=== PATIENT | female | born 1950 | race Caucasian/White ===

== ENCOUNTER 2017-11-10 10:00 | Inpatient (IN) ==
[2017-11-10 11:56] LABS: Appearance,Urine CLEAR; Bacteria,Urine 0 /hpf (0); Bilirubin,Urine NEG (NEG); Color,Urine COLORLESS; Glucose,Urine (UA) NEGATIVE (NEG); Leukocyte Esterase,Urine NEG /uL (NEG); Mucus,Urine FEW /hpf (0); Protein,Urine NEG (NEG); Specific Gravity,Urine 1.003 (1.000-1.035); Urine Blood 0.03 mg/dL (<0.03); Urine RBC < 1 /hpf (0-1); Urine Squamous Epithelial Cell < 1 /hpf (0-4); Urine WBC 0 /hpf (0-4); Urobilinogen,Urine NEG (NEG)
[2017-11-10 12:18] LABS: Basophils # (Auto) 0.1 K/mcL (0.0-0.3); Basophils % (Auto) 0.5 % (0.0-2.0); Eosinophils # (Auto) 0.3 K/mcL (0.0-0.7); Eosinophils % (Auto) 2.7 % (0.0-7.0); Granulocytes % (Auto) 62.3 % (38.0-78.0); Lymphocytes # (Auto) 3.2 K/mcL (1.5-4.8); Lymphocytes % (Auto) 28.1 % (15.5-49.0); Mean Cell Volume 90.8 fL (80.0-100.0); Mean Corpuscular HGB Conc 33.6 g/dL (31.0-36.0); Mean Corpuscular Hemoglobin 30.5 pg (26.0-34.0); Monocytes # (Auto) 0.7 K/mcL (0.1-0.9); Monocytes % (Auto) 6.4 % (1.0-12.0); Platelet Count 364 K/mcL (140-440); RBC 4.92 M/mcL (4.00-5.20); Red Cell Distribution Width 13.4 % (11.5-14.5)
[2017-11-10 12:33] LABS: Blood Urea Nitrogen 13 mg/dl (8-23)
[2017-11-17] MEDS ORDERED: PREGABALIN 75 MG CAPSULE PO SCH (06:00)
[2017-11-17] MEDS ORDERED: ACETAMINOPHEN 500 MG TABLET PO SCH (06:00)
[2017-11-17] MEDS ORDERED: oxyCODONE 10 MG TAB.ER.12H PO SCH (06:00)
[2017-11-17] MEDS ORDERED: ceFAZolin 1 GM VIAL IV SCH (06:00)
[2017-11-17] MEDS ORDERED: SODIUM CHLORIDE IJ ONE (09:01)
[2017-11-17] MEDS ORDERED: ROPIVACAINE HCL IJ ONE (09:01)
[2017-11-17] MEDS ORDERED: EPINEPHRINE IJ ONE (09:01)
[2017-11-17] MEDS ORDERED: ROPIVACAINE HCL/PF 49.5 ML, EPINEPHrine 0.5 MG, 0.9 % SODIUM CHLORIDE 9 ML IJ ONE (09:15)
[2017-11-17] MEDS ORDERED: SCOPOLAMINE 1 PATCH PATCH TOPICAL ONE (11:36)
[2017-11-17] MEDS ORDERED: IPRATROPIUM/ALBUTEROL 3 ML AMPUL.NEB NEB ONE (11:38)
[2017-11-17] MEDS ORDERED: GENTAMICIN SULFATE 800 MG/20 ML VIAL IR ONE (11:42)
[2017-11-17] MEDS ORDERED: LIDOCAINE HCL/PF 100 MG/5 ML SYRINGE IV ONE (12:05)
[2017-11-17] MEDS ORDERED: TRANEXAMIC ACID 1,000 MG/10 ML VIAL IV ONE ×3 (12:05→15:21)
[2017-11-17] MEDS ORDERED: ONDANSETRON 4 MG/2 ML VIAL IV ONE (12:05)
[2017-11-17] MEDS ORDERED: BUPIVACAINE PF 0.5% 30 ML VIAL IJ ONE (12:05)
[2017-11-17] MEDS ORDERED: DEXAMETHASONE 10 MG/ML VIAL IV ONE (12:05)
[2017-11-17] MEDS ORDERED: MIDAZOLAM 5 MG/5 ML VIAL IV ONE (12:05)
[2017-11-17] MEDS ORDERED: PROPOFOL 200 MG/20 ML VIAL IV ONE (12:05)
[2017-11-17] MEDS ORDERED: METHOCARBAMOL 1,000 MG/10 ML VIAL IV PRN (12:47)
[2017-11-17] MEDS ORDERED: diphenhydrAMINE 50 MG/ML VIAL IV PRN (12:47)
[2017-11-17] MEDS ORDERED: ePHEDrine 50 MG/ML AMPUL IV PRN (12:47)
[2017-11-17] MEDS ORDERED: NALOXONE HCL 0.4 MG/ML VIAL IV PRN (12:47)
[2017-11-17] MEDS ORDERED: IPRATROPIUM/ALBUTEROL 3 ML AMPUL.NEB NEB PRN (12:47)
[2017-11-17] MEDS ORDERED: HYDROmorphone 2 MG/ML VIAL IV PRN (12:47)
[2017-11-17] MEDS ORDERED: FLUMAZENIL 0.1 MG/ML ML IV PRN (12:47)
[2017-11-17] MEDS ORDERED: ONDANSETRON 4 MG/2 ML VIAL IV PRN ×2 (12:47→15:21)
[2017-11-17] MEDS ORDERED: fentaNYL 100 MCG/2 ML VIAL IV PRN (12:47)
[2017-11-17] MEDS ORDERED: ATROPINE SULFATE 0.4 MG/ML VIAL IV PRN (12:47)
[2017-11-17] MEDS ORDERED: PROMETHAZINE 25 MG/ML VIAL IV PRN (12:47)
[2017-11-17] MEDS ORDERED: LACTATED RINGERS 1,000 ML IV SCH (13:00)
[2017-11-17] MEDS ORDERED: HYDROcodone/APAP 10/325MG TABLET PO PRN (13:28)
[2017-11-17] MEDS ORDERED: NAPROXEN (PP) 200MG TABLET (#24) PO PRN (13:28)
--- NOTE | 2017-11-17 13:28 | Brief Operative Note ---
Date of procedure: 11/17/17 Pre-op diagnosis: RIGHT KNEE DJD Post-op diagnosis: same Procedure: RIGHT KNEE TKA Grafts/Implants: Yes Anesthesia: GETA Findings: NONE Surgeon: Chalino Flores Qa Reviewer: Maurilio Angeles Estimated blood loss (cc): 20 Tourniquet Time (Minutes): 45 Specimens Removed/Pathology: none sent Condition: stable Disposition: PACU
[2017-11-17] MEDS: MEPERIDINE 25 MG/ML SYRINGE IV PRN ×2 (13:45→14:06)
[2017-11-17] MEDS ORDERED: TRANEXAMIC ACID 1,000 MG/10 ML VIAL IV SCH (14:06)
[2017-11-17] MEDS ORDERED: BENZOCAINE/MENTHOL 1 LOZENGE PO PRN (15:21)
[2017-11-17] MEDS ORDERED: BISACODYL 10 MG SUPP.RECT PR PRN (15:21)
[2017-11-17] MEDS ORDERED: FLEETS ADULT ENEMA PR PRN (15:21)
[2017-11-17] MEDS ORDERED: POLYETHYLENE GLYCOL 3350 17 GM PACKET PO PRN (15:21)
[2017-11-17] MEDS ORDERED: ACETAMINOPHEN 325 MG TABLET PO PRN (15:21)
[2017-11-17] MEDS ORDERED: MAGNESIUM HYDROXIDE 30 ML ORAL.SUSP PO PRN (15:21)
[2017-11-17] MEDS ORDERED: HYDROcodone/APAP 10/325MG TABLET PO ONE (15:26)
[2017-11-17] MEDS: HYDROcodone/APAP 10/325MG TABLET PO PRN ×3 (15:27→23:49)
[2017-11-17] MEDS: 0.45 % SODIUM CHLORIDE 1,000 ML IV SCH (15:34)
[2017-11-17] MEDS ORDERED: NAPROXEN 250 MG TABLET PO PRN (15:37)
--- NOTE | 2017-11-17 16:12 | Operative Note ---
DATE OF OPERATION: 11/17/2017 PREOPERATIVE DIAGNOSIS: Right knee degenerative arthritis, severe. POSTOPERATIVE DIAGNOSIS: Right knee degenerative arthritis, severe. PROCEDURE: Right total knee arthroplasty. SURGEON: Chalino Flores M.D. JIG OPERATOR: Maurilio Angeles PA-C. ANESTHESIA: General LMA anesthesia. COMPLICATIONS: None. IMPLANTS PLACED: A size 5 femur, size 4 tibial baseplate, ODC component performed. DESCRIPTION OF PROCEDURE: The patient was brought to the operating room and put to sleep with general LMA anesthesia. Once asleep, the patient had the right knee sterilely prepped and draped in the usual sterile fashion. Leg was exsanguinated and tourniquet inflated to 250 pounds of pressure. Once done, we then inflated the tourniquet and made a midline incision, a mid vastus approach performed. This showed severe arthritis throughout the joint. Once we confirmed the arthritis and the location of the same and severe arthritis, we proceeded with a total knee arthroplasty. We placed an intramedullary guide hole into the femur and tibia. We then made our distal femoral cut, proximal tibial cut and chamfer cuts. We then sized the femur to a size 5, tibial baseplate to a size 4. A 9 mm poly was the most appropriate achieving full range of motion and stability, both at 15 degrees and 90 degrees of flexion, perfectly balanced. We irrigated thoroughly and we prepared the patella. The patella measured 21 mm. We cut this to 13 mm and then implanted a 38 mm patellar button. All of these components were cemented into place. Excess cement was removed. Tourniquet was deflated at 45 minutes. There were no complications. No drains were placed. The fascial layer was closed with #1 Stratafix. The skin was closed with 2-0 Vicryl and an adhesive closure. RBH:[email or web address] Job ID: [id number] Doc ID: [id number] Chalino Flores MD
[2017-11-17] MEDS: HYDROmorphone 2 MG/ML VIAL IV PRN ×2 (16:38→19:48)
--- NOTE | 2017-11-17 17:54 | XRay Report ---
CLINICAL INFORMATION: Total knee arthroplasty COMPARISON: None. FINDINGS: Total knee prostheses is anatomically aligned. No osseous abnormality. There appears be small amount of cement over the lateral periarticular soft tissue tissue tissues IMPRESSION: Postoperative changes as described Interpreted and Authenticated by: Moshe Perkins 11/17/17
[2017-11-17] MEDS: FERROUS SULFATE 325 MG TABLET PO SCH (17:59)
[2017-11-17] MEDS ORDERED: ACETAMINOPHEN 1,000 MG/100 ML BOTTLE IV ONE ×2 (18:00→18:08)
[2017-11-17] MEDS ORDERED: KETOROLAC 15 MG/ML VIAL IV PRN (18:00)
[2017-11-17] MEDS ORDERED: NICOTINE 21 MG PATCH ONE (19:04)
[2017-11-17] MEDS: ceFAZolin 1 GM VIAL IV SCH (19:14)
[2017-11-17] MEDS ORDERED: TEMAZEPAM 15 MG CAPSULE PO PRN (21:00)
[2017-11-17] MEDS: ASPIRIN 325 MG ENTERIC COATED TABLET PO SCH (21:41)
[2017-11-17] MEDS: SENNOSIDES 1 TABLET PO SCH (21:41)
[2017-11-17] MEDS: DOCUSATE SODIUM 100 MG CAPSULE PO SCH (21:41)
[2017-11-17] MEDS: 0.9 % SODIUM CHLORIDE 10 ML SYRINGE IV SCH (21:43)
[2017-11-18] MEDS: 0.45 % SODIUM CHLORIDE 1,000 ML IV SCH ×3 (01:40→22:15)
[2017-11-18] MEDS: ceFAZolin 1 GM VIAL IV SCH (03:52)
[2017-11-18] MEDS: HYDROcodone/APAP 10/325MG TABLET PO PRN ×5 (04:15→21:22)
[2017-11-18] MEDS: HYDROmorphone 2 MG/ML VIAL IV PRN (06:45)
[2017-11-18] MEDS: 0.9 % SODIUM CHLORIDE 10 ML SYRINGE IV SCH ×3 (06:46→21:21)
--- NOTE | 2017-11-18 07:27 | Orthopedic Progress Note ---
Subjective Patient information: Note initiated : 11/18/17 at 7:26 am Service Date, if different from initiated Date: [] Patient: Quyen Waters 67 y/o F admitted on 11/17/17 for Right Total Knee Arthroplasty. Chief Complaint: [Pt is stable this morning on post operative day 1 without any significant concerns or complaints. Patients vital signs have remained stable. Patients dressing is dry and is grossly instact from a neurovascular and motor standpoint. Patients 10 point ROS is otherwise negative. ] Objective Vital signs: Vital Signs Temp Pulse Resp BP BP Pulse Ox 11/18/17 07:05 98.3 F 73 14 121/60 100 11/18/17 06:57 100 11/18/17 04:00 98.4 F 83 14 130/72 95 11/18/17 00:00 98.5 F 82 14 132/70 96 11/17/17 20:00 97.7 F 84 14 132/79 95 11/17/17 17:14 129/68 96 11/17/17 16:34 135/71 94 11/17/17 16:07 134/82 96 11/17/17 15:37 124/77 98 11/17/17 15:22 117/66 98 11/17/17 15:21 96 11/17/17 15:07 127/77 97 11/17/17 15:03 99 11/17/17 14:53 116/56 98 11/17/17 14:24 98.1 F 86 14 128/57 95 11/17/17 14:07 88 16 141/57 99 11/17/17 13:53 92 H 19 143/59 95 11/17/17 13:37 98.9 F 82 16 137/53 100 11/17/17 09:44 98.3 F 18 118/67 97 Intake and Output 11/17/17 11/18/17 11/18/17 21:59 05:59 13:59 Intake Total 1500 / 1500 1250 / 1250 Output Total 800 / 800 1850 / 1850 Balance 700 / 700 -600 / -600 Intake: IV 100 / 100 1000 / 1000 Sodium Chloride 0.45% 1,000 ml 1000 / 1000 @ 100 mls/hr IV .Q10H [facility] Rx#: [id number] Oral 1200 / 1200 250 / 250 IV - Manual Only 200 / 200 Output: Urine Catheter Amount 800 / 800 Straight 800 / 800 Void Amount 1850 / 1850 Other: Meal Dinner Percent of Meal Consumed 100% Feeding Ability Independent Weight 181 lb Intake & Output: Intake & Output 11/17/17 11/18/17 11/18/17 21:59 05:59 13:59 Intake Total 1500 / 1500 1250 / 1250 Output Total 800 / 800 1850 / 1850 Balance 700 / 700 -600 / -600 Weight 181 lb Intake: IV 100 / 100 1000 / 1000 Sodium Chloride 0.45% 1,000 ml 1000 / 1000 @ 100 mls/hr IV .Q10H [facility] Rx#: [id number] Oral 1200 / 1200 250 / 250 IV - Manual Only 200 / 200 Output: Urine Catheter Amount 800 / 800 Straight 800 / 800 Void Amount 1850 Other: Meal Dinner Percent of Meal Consumed 100% Feeding Ability Independent Incision: Yes healing Incision clean and dry: Yes Dressing: Yes clean Weight bearing status: full Neurological exam IM: Yes motor sensory intact, Yes neurovascular intact Extremities exam IM: Yes Foot pink and warm, Yes neurovascular intact - Labs CBC & BMP: 11/18/17 05:10 11/10/17 10:32 Labs: Orthopedic Labs 11/10/17 10:32 PT 12.1 INR 0.9 APTT 32 11/18/17 11/10/17 05:10 10:33 Hgb 15.0 Hct 35.6 L 44.7 Assessment and Plan (1) Hx of total knee arthroplasty The patient has been educated regarding dressing care, Physical Therapy recommendations, home exercises, restrictions, and follow up appointments. The patient has had all necessary DME prescribed. The patient has remained stable during their hospital course. The patient was discharge with a stable exam. Leave Dermabond patch intact until followup Status: Acute
--- NOTE | 2017-11-18 07:33 | Discharge Summary ---
Ortho Discharge - TKA - Patient Instructions Diet: Regular Diet Activity: activity as tolerated, weight bearing as tolerated Total Knee Protocol: For Total Knee: Start ROM KB with stationary bike or rocking chair. Work on gaining full extension of knee. Posterior dislocation precautions provided. Hip abductor strengthening and gait training instructions provided. Apply Cryocuff as instructed. Dressing Care: May shower in 2 days Patient Education: Total Knee Replacement (DC) Additional Instructions: Discharge Instructions: Do the exercises at home that physical therapy gave you. Take your prescription, photo ID, insurance cards, and current medication list with you to your first physical therapy appointment. Take your prescription to coal picker any medication or equipment (such as walker, crutches, toilet riser or C.P.M.) Wear comfortable clothing for your physical therapy. Weight bearing as tolerated. If you have the Aquacel Ag dressing, leave in place for 7 days then remove. If dressing becomes soiled (turns black), remove and use gauze 4x4 dressing and silvasorb ointment and change daily. Keep incision clean and dry. If you have Dermabond (a dressing with a mesh-like appearance), leave open to air. You may start showering on post op day #2. The Dermabond dressing can get wet, do not scrub dressing. Pat dry. To avoid constipation while taking any narcotic pain medication, take an over the counter stool softener/laxative. Use your Cryocuff or ice packs as directed, on for 20 minutes at a time throughout the day. This and elevation will help with pain and swelling. Call your physician for fevers above 100.5 or pain not controlled by medication. Your prescriptions are with your discharge information. Some medications were electronically transmitted to your pharmacy of choice. - Problem Maintenance (1) Hx of total knee arthroplasty Status: Acute - Follow Up Plan Follow Up Appointments: Maurilio Angeles PA-C [Physician Cassandra Consultant] - 12/02/17 9:20 am Disposition: Home, Self-Care Prognosis: Good Rehab Potential: Good Overall status at discharge: patient is progressing back to baseline - Orders For Discharge Prescriptions: Cane 1 each MC CONT #1 each HYDROcodone/APAP 10/325MG [[place] 10-325Mg] 1 - 2 tab PO Q4H PRN #60 tab PRN Reason: Pain Additional Discharge Orders: Physical Therapy at Discharge - [facility]I Location: Determined By Patient Toilet Riser Discharge Order Location: Determined By Patient Walker Location: Determined By Patient
[2017-11-18] MEDS: FERROUS SULFATE 325 MG TABLET PO SCH ×2 (08:38→17:45)
[2017-11-18] MEDS: DOCUSATE SODIUM 100 MG CAPSULE PO SCH ×2 (08:39→21:22)
[2017-11-18] MEDS: ASPIRIN 325 MG ENTERIC COATED TABLET PO SCH ×2 (08:39→21:22)
[2017-11-18] MEDS ORDERED: PNEUMOCOCCAL 23-VAL P-SAC VAC 0.5 ML VIAL IM ONE (10:00)
[2017-11-18] MEDS: NICOTINE 21 MG PATCH TOPICAL SCH (10:38)
[2017-11-18] MEDS: SENNOSIDES 1 TABLET PO SCH (21:22)
[2017-11-19] MEDS: HYDROcodone/APAP 10/325MG TABLET PO PRN ×3 (02:37→10:34)
[2017-11-19] MEDS: 0.9 % SODIUM CHLORIDE 10 ML SYRINGE IV SCH (06:11)
[2017-11-19] MEDS: FERROUS SULFATE 325 MG TABLET PO SCH (08:14)
[2017-11-19] MEDS: ASPIRIN 325 MG ENTERIC COATED TABLET PO SCH (08:14)
[2017-11-19] MEDS: DOCUSATE SODIUM 100 MG CAPSULE PO SCH (08:14)
[2017-11-19] MEDS: 0.45 % SODIUM CHLORIDE 1,000 ML IV SCH (08:18)
[2017-11-19] MEDS: NICOTINE 21 MG PATCH TOPICAL SCH (10:34)
--- NOTE | 2017-11-24 11:45 | Discharge Summary ---
DATE OF ADMISSION: 11/17/2017 DATE OF DISCHARGE: 11/19/2017 ADMITTING DIAGNOSIS: Right degenerative osteoarthritis. DISCHARGE DIAGNOSIS: Right degenerative osteoarthritis status post right total knee arthroplasty. DISCHARGE CONDITION: Stable. CONSULTATIONS: None. PROCEDURE PERFORMED: Right total knee arthroplasty was completed on the date of admission. The procedure went without complications and there was minimal blood loss. Following the procedure the patient was taken to recovery room in stable condition. When deemed stable, was taken to the hospital floor for further observation and recovery. HISTORY OF PRESENT ILLNESS: This pleasant patient has exhausted conservative care measures in the office that has included trials with anti-inflammatories, pain medications, injections and physical therapy. The patient has discussed non-operative and operative options with Dr. Flores at length. Due to the exhausting conservative measures the patient desired to proceed forth with operative care. HOSPITAL COURSE: The patient remained stable throughout the hospital course and exhibited normal neurovascular examinations throughout the stay. The patient worked with physical therapy per standard protocols. The patient had no incidents during the hospital course. The patient also had a stable physical exam upon discharge. The patient was discharged home in a stable state. DISCHARGE PHYSICAL EXAMINATION: VITAL SIGNS: Stable as above. GENERAL: Patient is awake, alert and oriented x3. HEENT: Head was normocephalic. NECK: Supple, no adenopathy or thyromegaly. CHEST: CTA, no wheezing, rhonchi or rales. HEART: NSR, no gallops, rubs or murmurs. MUSCULOSKELETAL: Lower extremities revealed grossly intact motor exam. NEUROLOGIC: Deep tendon response and light touch, motor, neurosensory exam was stable. SKIN: The incision was intact and the dressing had been changed to the Acticoat dressing. There were no abnormal skin markings, lesions, erythema, rashes or other skin breakdown. DISCHARGE INSTRUCTIONS/MEDICATIONS: The patient received our standard written discharge instruction sheet. These instructions included information regarding weightbearing status, activity level, diet, wound care, physical therapy instructions, bathing restrictions, shower recommendations, follow-up guidelines, driving restrictions and monitoring the wound for signs of infection that could include but not necessarily to fevers above 101.5, sweats, chills, redness, increased pain or drainage. Should any of these occur the patient was educated to contact our office at once. MEDICATIONS: The patient was restarted on normal primary care medications. Patient was also prescribed [place] 10/325 mg with instructions for 1 to 2 tabs by mouth every 4 to 6 hours as needed for pain, quantity 75 with 2 refills. The patient will be placed on 325 mg aspirin, 1 a day for 30 days post-surgery. [facility] will monitor the patient's PT/INR. FOLLOWUP: Patient will follow up at [facility] 2 weeks from surgery for a postop wound check and staple removal. They will be able to certain follow up sooner with any problems or concerns. BAP:[email or web address] Job ID: [id number] Doc ID: [id number] Maurilio Angeles PA-C
== END 2017-11-19 11:05 | disposition home or self-care (01) | DRG 470 ==
LOC: MEDSUR 11-17 09:21
PROVIDERS: ADMIT Orthopaedic Surgery; ATTEND Orthopaedic Surgery